=== PATIENT | male | born 1980 | race Caucasian/White ===

== ENCOUNTER 2017-04-19 11:26 | Outpatient (CLI) | payer BC ==
[~2017-04-19] VITALS: Ht 172.7 cm; Wt 104.1 kg
[2017-04-19 11:39] VITALS: Ht 172.7 cm; Wt 104.1 kg
[2017-04-19 11:40] VITALS: BP 139/79; PULSE 72; RESP 16
--- NOTE | 2017-04-19 11:48 | PN ---
Date/Time of Note Date/Time of Note DATE: 04/19/17 TIME: 11:47 Assessment/Plan Assessment/Plan Assessment/Plan [facility] Progress Note Date of Service: 04/19/17 Today's Impression & Plan: Overall doing well post op without major issues. No major wound problems. With above assessment, I've recommended the following for today: 1. F/u with PCP 2. F/u with us prn Thank you again for your great care of this very pleasant patient and wonderful family. If there are any questions, please feel free to call me at [phone]. TOTAL VISIT TIME: 20 minutes of which more than half was spent in [id number] discussion with the patient, possibly including family, as well as coordination of care between multiple physicians and providers. Disclaimer: Inadvertent spelling or grammatical errors are likely due to EHR/ dictation software use and do not reflect on the overall quality of patient care. Updated Clinical Summary: A very pleasant 37-year-old gentleman with comorbidities including BMI 36.1 and recent injury to his left arm, which reportedly from his work as a [employer] worker, presenting with possible early acute cholecystitis and possible choledocholithiasis. S/p lap ghada at [facility] on 04/06/17 for acute and chronic cholecystitis with cholelithiasis and no evidence of malignancy. COMORBIDITIES: 1. Acute on chronic cholecystitis 2. 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 3. Possible early acute cholecystitis 04/04/2017. 4. Possible choledocholithiasis 04/04/2017. 5. BMI 36.1. 6. S/p lap ghada at [facility] on 04/06/17 for acute and chronic cholecystitis with cholelithiasis and no evidence of malignancy. Subjective: No major events or complaints; no major abd pain and under control with medications; no n/v/d; no sob or cp; + flatus; + BM and normal; + activity Objective: Vitals: See below Exam: GENERAL: On exam, the patient was sitting in a chair and appeared to be comfortable and in no acute distress. ABDOMEN: Soft, nontender and nondistended. Incisions are clean, dry and intact without any evidence of erythema, edema, discharge, or hernia. There are no peritoneal signs or guarding. SKIN: Skin appears to be pink and feels warm to touch. NEUROLOGIC: Patient is awake, alert, and follows commands appropriately. EARLENE CLARK M.D. April 19, 2017 11:47
== END 2017-04-19 15:36 | disposition home or self-care (01) ==
LOC: HPC 11:26
PROVIDERS: ATTEND Transplant Surgery
DX: Z09 Encounter for follow-up examination after completed treatment for conditions other than malignant neoplasm (principal); K80.10 Calculus of gallbladder with chronic cholecystitis without obstruction
CPT/HCPCS: G0463